=== PATIENT | male | born 1985 | race African-American/Black ===

== ENCOUNTER 2018-08-08 11:45 | Emergency (ER) | payer SELFPAY ==
[2018-08-08] MEDS ORDERED: NS(*) 0.9% 1000 ML BAG 1,000 ML IV ONE ×2 (12:15→13:10)
[2018-08-08] MEDS ORDERED: PANTOPRAZOLE SOD 40 MG IV VIAL IVP ONE (12:15)
[2018-08-08] MEDS ORDERED: ONDANSETRON 4 MG/2 ML VIAL IVP ONE ×3 (12:15→13:40)
--- NOTE | 2018-08-08 12:23 | ER Report ---
History and Physical Time Seen By MD: 12:17 Hx. of Stated Complaint: VOMITING BROWN SINCE 6AM, CHILLS AND DIAPHORESIS HPI/ROS CHIEF COMPLAINT: Vomiting HISTORY OF PRESENT ILLNESS: Patient is a 33-year-old male who is here in [place] on business originally from [place]. States that he was in his usual state of good health until around 6 AM this morning when he began having multiple episodes of brown vomit. He does report some epigastric abdominal pain but that is mild. He denies any fevers or chills but feels very washed out and tired. He denies any diarrhea. He denies chest pain or shortness of breath. Denies any recent antibiotic use. Patient did bring a sample of vomiting which we will test for Gastroccult. REVIEW OF SYSTEMS: Constitutional: No fever, no chills. Eyes: No discharge. ENT: No sore throat. Cardiovascular: No chest pain, no palpitations. Respiratory: No cough, no shortness of breath. Gastrointestinal: Epigastric abdominal pain, nausea vomiting no diarrhea Genitourinary: No hematuria. Musculoskeletal: No back pain. Skin: No rashes. Neurological: No headache. Allergies: Coded Allergies: No Known Drug Allergies (Unverified , 08/08/18) Home Meds Active Scripts Ondansetron Hcl (ZOFRAN) 4 Mg Tablet, 4 MG PO Q8H for Nausea, #15 TAB 0 Refills Prov:TAWNYA FRANKLIN MD 08/08/18 Past Medical/Surgical History Noncontributory towards this chief complaint Hx Substance Use Disorder: No Hx Alcohol Use: No Constitutional Vital Sign - Last 24 Hours 08/08/18 08/08/18 08/08/18 08/08/18 11:45 11:56 11:57 11:59 Temp 97.9 Pulse ??? 75 Resp 14 B/P (MAP) 159/107 (124) 177/115 (135) 159/107 Pulse Ox 99 O2 Delivery Room Air 08/08/18 08/08/18 08/08/18 08/08/18 12:00 12:15 12:30 12:35 Pulse 70 71 66 Resp 17 B/P (MAP) 184/111 (135) ???/??? (1665) Pulse Ox 94 100 97 08/08/18 08/08/18 08/08/18 08/08/18 12:45 13:00 13:15 13:30 Pulse 65 73 77 ??? B/P (MAP) 189/117 (141) Pulse Ox 98 100 83 97 Physical Exam General/Constitutional: Patient is awake, alert, nontoxic and in no acute respiratory distress. Head: Normocephalic and atraumatic. Eyes: Conjunctival clear, Sclera are clear and anicteric. Nares: No rhinorrhea or bleeding. Oropharyngeal: Mucous membranes are dry Neck: Supple, no adenopathy. Cardiovascular: Heart is regular rate and rhythm without audible murmurs, rubs or gallops. Pulmonary: Lungs are clear to auscultation bilaterally. There are no wheezes, rales, or rhonchi. Chest rise is symmetrical Abdomen: Soft, nontender, no guarding or peritoneal signs. Extremities: No gross deformities, No peripheral cyanosis. Able to move all 4 extremities. Neuro: Alert and oriented X3, Patient has normal gait. Skin: No rashes, skin is warm dry and well perfused. Medical Decision Making Data Points Result Diagram: 08/08/18 1253 08/08/18 1253 Laboratory Hematology Test 08/08/18 12:25 08/08/18 12:45 08/08/18 12:53 08/08/18 14:14 Influenza Virus Type A (PCR) Negative (NEGATIVE) Influenza Virus Type B (PCR) Negative (NEGATIVE) Gastric Fluid pH 2 pH Gastric Fluid Occult Blood Positive (NEGATIVE) Red Blood Count 5.19 M/uL (4.00-5.60) Mean Corpuscular Volume 91.3 fL (80.0-96.0) Mean Corpuscular Hemoglobin 30.5 pg (26.0-33.0) Mean Corpuscular Hemoglobin Concent 33.5 g/dL (32.0-36.0) Red Cell Distribution Width 13.4 % (11.5-14.5) Mean Platelet Volume 9.5 fL (7.2-11.1) Neutrophils (%) (Auto) 87.1 % (39.4-72.5) Lymphocytes (%) (Auto) 7.9 % (17.6-49.6) Monocytes (%) (Auto) 4.4 % (4.1-12.4) Eosinophils (%) (Auto) 0.4 % (0.4-6.7) Basophils (%) (Auto) 0.2 % (0.3-1.4) Nucleated RBC Relative Count (auto) 0.0 /100WBC Neutrophils # (Auto) 12.5 K/uL (2.0-7.4) Lymphocytes # (Auto) 1.1 K/uL (1.3-3.6) Monocytes # (Auto) 0.6 K/uL (0.3-1.0) Eosinophils # (Auto) 0.1 K/uL (0.0-0.5) Basophils # (Auto) 0.0 K/uL (0.0-0.1) Nucleated RBC Absolute Count (auto) 0.00 K/uL Sodium Level 142 mmol/L (137-145) Potassium Level 3.8 mmol/L (3.5-5.0) Chloride Level 109 mmol/L (98-107) Carbon Dioxide Level 23 mmol/L (22-30) Blood Urea Nitrogen 13 mg/dl (9-21) Creatinine 0.90 mg/dl (0.66-1.25) Glomerular Filtration Rate Calc > 60.0 Random Glucose 94 mg/dl (75-110) Calcium Level 9.9 mg/dl (8.4-10.2) Total Bilirubin 0.6 mg/dl (0.2-1.3) Aspartate Amino Transf (AST/SGOT) 42 U/L (0-35) Alanine Aminotransferase (ALT/SGPT) 32 U/L (0-56) Alkaline Phosphatase 83 U/L (0-126) Total Protein 7.9 g/dl (6.3-8.2) Albumin 4.9 g/dl (3.5-5.0) Lipase 99 U/L (23-300) Helicobacter pylori IgG Antibody Negative (NEGATIVE) Urine Color Yellow Urine Clarity Clear Urine pH 8.0 pH (4.8-9.5) Urine Specific [place] 1.029 Urine Protein Negative mg/dL (NEGATIVE) Urine Glucose (UA) Negative mg/dL (NEGATIVE) Urine Ketones Negative mg/dL (NEGATIVE) Urine Blood Negative (NEGATIVE) Urine Nitrite Negative (NEGATIVE) Urine Bilirubin Negative (NEGATIVE) Urine Urobilinogen Negative mg/dL (0.2-1.9) Urine Leukocyte Esterase Negative (NEGATIVE) Urine RBC None /HPF (0-2/HPF) Urine WBC 1 /HPF (0-5/HPF) Urine Squamous Epithelial Cells None /LPF (</=FEW) Urine Bacteria Negative /HPF (NONE-FEW) Urine Mucus Few /HPF (NONE-FEW) Chemistry Test 08/08/18 12:25 08/08/18 12:45 08/08/18 12:53 08/08/18 14:14 Influenza Virus Type A (PCR) Negative (NEGATIVE) Influenza Virus Type B (PCR) Negative (NEGATIVE) Gastric Fluid pH 2 pH Gastric Fluid Occult Blood Positive (NEGATIVE) White Blood Count 14.4 k/uL (4.5-11.0) Red Blood Count 5.19 M/uL (4.00-5.60) Hemoglobin 15.9 g/dL (14.0-18.0) Hematocrit 47.4 % (42.0-52.0) Mean Corpuscular Volume 91.3 fL (80.0-96.0) Mean Corpuscular Hemoglobin 30.5 pg (26.0-33.0) Mean Corpuscular Hemoglobin Concent 33.5 g/dL (32.0-36.0) Red Cell Distribution Width 13.4 % (11.5-14.5) Platelet Count 177 K/uL (150-450) Mean Platelet Volume 9.5 fL (7.2-11.1) Neutrophils (%) (Auto) 87.1 % (39.4-72.5) Lymphocytes (%) (Auto) 7.9 % (17.6-49.6) Monocytes (%) (Auto) 4.4 % (4.1-12.4) Eosinophils (%) (Auto) 0.4 % (0.4-6.7) Basophils (%) (Auto) 0.2 % (0.3-1.4) Nucleated RBC Relative Count (auto) 0.0 /100WBC Neutrophils # (Auto) 12.5 K/uL (2.0-7.4) Lymphocytes # (Auto) 1.1 K/uL (1.3-3.6) Monocytes # (Auto) 0.6 K/uL (0.3-1.0) Eosinophils # (Auto) 0.1 K/uL (0.0-0.5) Basophils # (Auto) 0.0 K/uL (0.0-0.1) Nucleated RBC Absolute Count (auto) 0.00 K/uL Glomerular Filtration Rate Calc > 60.0 Calcium Level 9.9 mg/dl (8.4-10.2) Total Bilirubin 0.6 mg/dl (0.2-1.3) Aspartate Amino Transf (AST/SGOT) 42 U/L (0-35) Alanine Aminotransferase (ALT/SGPT) 32 U/L (0-56) Alkaline Phosphatase 83 U/L (0-126) Total Protein 7.9 g/dl (6.3-8.2) Albumin 4.9 g/dl (3.5-5.0) Lipase 99 U/L (23-300) Helicobacter pylori IgG Antibody Negative (NEGATIVE) Urine Color Yellow Urine Clarity Clear Urine pH 8.0 pH (4.8-9.5) Urine Specific [place] 1.029 Urine Protein Negative mg/dL (NEGATIVE) Urine Glucose (UA) Negative mg/dL (NEGATIVE) Urine Ketones Negative mg/dL (NEGATIVE) Urine Blood Negative (NEGATIVE) Urine Nitrite Negative (NEGATIVE) Urine Bilirubin Negative (NEGATIVE) Urine Urobilinogen Negative mg/dL (0.2-1.9) Urine Leukocyte Esterase Negative (NEGATIVE) Urine RBC None /HPF (0-2/HPF) Urine WBC 1 /HPF (0-5/HPF) Urine Squamous Epithelial Cells None /LPF (</=FEW) Urine Bacteria Negative /HPF (NONE-FEW) Urine Mucus Few /HPF (NONE-FEW) Urinalysis Test 08/08/18 14:14 Urine Color Yellow Urine Clarity Clear Urine pH 8.0 pH (4.8-9.5) Urine Specific [place] 1.029 Urine Protein Negative mg/dL (NEGATIVE) Urine Glucose (UA) Negative mg/dL (NEGATIVE) Urine Ketones Negative mg/dL (NEGATIVE) Urine Blood Negative (NEGATIVE) Urine Nitrite Negative (NEGATIVE) Urine Bilirubin Negative (NEGATIVE) Urine Urobilinogen Negative mg/dL (0.2-1.9) Urine Leukocyte Esterase Negative (NEGATIVE) Urine RBC None /HPF (0-2/HPF) Urine WBC 1 /HPF (0-5/HPF) Urine Squamous Epithelial Cells None /LPF (</=FEW) Urine Bacteria Negative /HPF (NONE-FEW) Urine Mucus Few /HPF (NONE-FEW) EKG/Imaging EKG Interpretation EKG shows normal sinus rhythm with ventricular rate of [address] segment or T-wave abnormalities. Monitor Interpretation: Normal Sinus Rhythm ED Course/Re-evaluation Clinical Indication for ER IV: IV Access ED Course 08/08/2018 12:22:51 pm patient with vomiting plan at this time will be to check abdominal labs, we will test blood for Hemoccult. We'll give IV fluids, IV Zofran, IV Protonix. 08/08/2018 1:43:50 pm continuing to have a portable retching. A CT scan of the abdomen and pelvis is ordered. Patient has had 4 mg of Zofran 1 L of fluid and 25 mg of Phenergan and still having symptoms. 2nd liter of fluid has been ordered and another 4 mg of Zofran are ordered. Blood work shows slightly elevated white count of 14,000 LFTs lipase are normal. EKG is unremarkable. 08/08/2018 2:51:26 pm patient feeling mildly improved, states he wants to get back on the road with his traveling were clear. We'll dispense 4 Zofran ODT to go patient will be instructed to follow up with the nearest medical facility if symptoms worsen. Decision to Disposition Date: Aug 08, 2018 Decision to Disposition Time: 14:51 Depart Departure Latest Vital Signs Vital Signs Date Time Temp Pulse Resp B/P (MAP) Pulse Ox O2 Delivery O2 Flow Rate FiO2 08/08/18 13:30 ??? 189/117 (141) 97 08/08/18 12:15 17 08/08/18 11:59 97.9 Room Air Impression: Primary Impression: Vomiting Condition: Improved Disposition: HOME OR SELF-CARE New Scripts Ondansetron Hcl (ZOFRAN) 4 Mg Tablet 4 MG PO Q8H for Nausea, #15 TAB 0 Refills Prov: TAWNYA FRANKLIN MD 08/08/18 Patient Instructions: Acute Nausea and Vomiting (ED) Additional Instructions: If your symptoms worsen at any time you should go directly to the nearest Medical Center facility for evaluation You were given for Zofran tablets.Youi may take one tablet by mouth every 6 hours as needed for nausea or vomiting. Problem Qualifiers Primary Impression: Vomiting Vomiting type: unspecified Vomiting Intractability: intractable Nausea presence: with nausea Qualified Codes: R11.2 - Nausea with vomiting, unspecified TAWNYA FRANKLIN MD Aug 08, 2018 12:23
[2018-08-08 13:03] LABS: PLATELET COUNT, AUTOMATED 177 K/uL (150-450)
[2018-08-08] MEDS ORDERED: PROMETHAZINE 25 MG/ML 1 ML AMP IVP ONE (13:05)
[2018-08-08] MEDS ORDERED: IOPAMIDOL 76% 100 ML INFUS BTL 100 ML ONE (13:45)
--- NOTE | 2018-08-08 14:32 | RADIOLOGY IMAGING REPORT ---
FACILITY: [facility] - [place], [place] PATIENT NAME: David Strange : 1985 MR: [id number] V: [id number] EXAM DATE: ORDERING PHYSICIAN: TAWNYA FRANKLIN TECHNOLOGIST: Location: [facility] Patient: David Strange : 1985 Visit/Account:[id number] Date of Sevice: 08/08/2018 CT ABDOMEN PELVIS W/ CON HISTORY: Vomiting. TECHNIQUE: CT abdomen and pelvis 95 cc of Isovue 370 IV. One of the following dose optimization lloyd [employer] was utilized in the performance of this exam: automated exposure control; adjustment of the m A and/or kV according to the patient's size; or use of an iterative reconstruction technique. Specif ic details can be referenced in the facility's radiology CT exam operational policy. COMPARISON: None. FINDINGS: Liver/gallbladder: The liver demonstrates normal enhancement. Gallbladder is unremarkable. Spleen: Normal. Adrenals: Normal. Pancreas: Normal enhancement without evidence of mass. Kidneys/: The right and left kidney demonstrate normal enhancement without evidence of hydronephro sis or mass. Both ureters are normal. Pelvis: Urinary bladder is normal. GI: There is no focal abnormality in the small bowel or colon. Appendix is normal. Vessels/spaces/nodes: Negative. Bones/soft tissues: There are no lytic or blastic bone lesions. Soft tissues are normal. Visualized lung bases: Clear. IMPRESSION: Normal CT abdomen and pelvis. Report Dictated By: Bryce Lane at 08/08/2018 2:25 PM Report E-Signed By: Bryce Lane at 08/08/2018 2:28 PM WSN:[id number]
[2018-08-08 14:49] VITALS: BP 162/106
[2018-08-08] MEDS ORDERED: ONDA4TAB97 PO (14:52)
[2018-08-08] MEDS ORDERED: ONDANSETRON 4 MG ODT TH SL ONE (14:55)
--- NOTE | 2018-08-08 15:51 | EKG ---
FACILITY: [facility] PATIENT NAME: GUIDO KELLOGG : [id number] MR: [id number] V: [id number] EXAM DATE: ORDERING PHYSICIAN: TAWNYA FRANKLIN TECHNOLOGIST: KEENAN Rogers Reason : Blood Pressure : / mmHG Vent. Rate : 068 BPM Atrial Rate : 068 BPM P-R Int : 166 ms QRS Dur : 104 ms QT Int : 414 ms P-R-T Axes : 070 -40 024 degrees QTc Int : 440 ms Normal sinus rhythm Indeterminate axis No ST-T abnormalities No previous ECGs available Confirmed by KARINA NAVARRO ([id number]) on 08/08/2018 5:10:40 PM Referred By: Confirmed By:KARINA NAVARRO
== END 2018-08-08 17:35 | disposition home or self-care (01) ==
LOC: ER 12:06
DX: R11.2 Nausea with vomiting, unspecified (principal)
CPT/HCPCS: 36415; 74177; 81001; 82271; 83690; 83986; 85025; 86677; 87502; 93005; 96361; 96374; 96375; 96376; 99284; C9113; J2405; J2550; J7030; Q9967; S0119; 82040; 82247; 82310; 82374; 82435; 82565; 82947; 84075; 84132; 84155; 84295; 84450; 84460; 84520